=== PATIENT | female | born 1945 | race Caucasian/White ===

== ENCOUNTER → 2016-04-26 | Day surgery (SDC) | payer OTHER ==
[~2016-04-26] VITALS: Ht 162.6 cm; Wt 80.3 kg
[~2016-04-26] MED LIST: ASPIRIN EC81 M1; ATIVAN1 M1 PO; DICLOFENAC SODI75 M2; GEMFIBROZIL600 M1; LOSARTAN POTASS50 M1; METFORMIN HCL500 M3 PO; SIMVASTATIN40 M1; SYNTHROID50 MCG
--- NOTE | 2016-04-26 13:38 | Operative Report ---
Operative/Inv Procedure Report Surgery Date: 04/26/16 Name of Procedure: Flexor digitorum longus tendon transfer to navicular, right foot Pre-Operative Diagnosis: Right foot posterior tibial tendon tear Post-Operative Diagnosis: Same, fracture navicular Estimated Blood Loss: scant Surgeon/Mine Wirer: BARBER ROMERO,HENRIK Cortes Anesthesia: laryngeal mask airway IV Fluids: See anesthesia record Implants: Arthrex Bio-Tenodesis screw 4.75 mm x 15 mm Drains: None Specimens: Right posterior tibial tendon Tourniquet: 62 minutes Complications: None Condition: Stable Operative Indication: Patient is a 71-year-old female who fractured her navicular tuberosity resulting in retraction of the bone fragment as well as the posterior tibial tendon. This happened several months ago. She failed conservative treatment and wished to have surgery for resection of the bone fragment which was causing pain and swelling as well as a construction of the midfoot tendon. The decision was made to use the flexor digitorum longus tendon to reconstruct the posterior tibial tendon. Risk and benefits of procedure discussed with the patient detail and she wished to proceed. Skilled set of hands was necessary provided by physician assistant professor of nursing Lino Cortes weighted with retraction suture management min throughout the case. Operative/Procedure Note Note: After administration of general endotracheal anesthesia the patient's right leg had a thigh tourniquet placed was prepped and draped in usual sterile fashion. To begin the procedure and incisions made starting at the navicular tuberosity carried out proximally just posterior to the medial malleolus. Sharp dissection was carried down through the skin and subcutaneous tissue. The tendon sheath was incised and the torn posterior tibial tendon and fracture fragment of the navicular tuberosity were easily identified. These were freed up sharply by dissection from scar tissue and the posterior tibial tendon was incised and passed off in toto for specimen. Once this was done the flexor digitorum longus tendon was identified and incised as far distally as possible close to the knot of Tae for replacement of the posterior tibial tendon. Scar tissue and fibrous tissue that had tried a heel where the bone fracture was removed was removed with a Ronjair from the navicular tuberosity and the tuberosity was smoothed with a Ronjair. The flexor digitorum longus tendon was whipstitched with a looped 2-0 FiberWire suture. Next a guidewire for the Bio-Tenodesis set was placed in the navicular and position of the guidewires confirmed in the AP and lateral planes. The tendon diameter was measured to be 5 mm so we chose a 4.75 mm x 15 mm Bio-Tenodesis screw and reamed over the guidewire the 5 mm reamer. The Bio-Tenodesis screw was placed on the screwdriver and the sutures were placed through the cannulated screwdriver with the tendon in place. The tendon and the Bio-Tenodesis screw were placed into the reamed bone and the Bio- Tenodesis screw secured the tendon using a Bio-Tenodesis fixation. The tendon tension was checked and found to be adequate. Cannot pull out either the screw or the tendon. At this point the wound was irrigated the tendon sheath was closed with 0 Vicryl interrupted sutures. The subcutaneous tissues closed with 2-0 Vicryl interrupted sutures and the skin was closed with 3-0 nylon interrupted sutures. A sterile dressing and splint was applied and the patient was awakened and taken recovery room in stable condition.
== END ==
LOC: STS 01:07
DX: S92.251A Displaced fracture of navicular [scaphoid] of right foot, initial encounter for closed fracture (principal); I10 Essential (primary) hypertension; E03.9 Hypothyroidism, unspecified; E11.9 Type 2 diabetes mellitus without complications; Z79.84 Long term (current) use of oral hypoglycemic drugs
CPT/HCPCS: 88304; J0131; J0690; J2250; J2405